=== PATIENT | male | born 1985 | race American Indian/Alaskan Native ===

== ENCOUNTER 2020-03-15 09:29 | Emergency (ER) | payer SELFPAY ==
[2020-03-15 09:34] VITALS: BP 156/112
--- NOTE | 2020-03-15 10:20 | Emergency Department Report ---
Chief Complaint: Dental/Oral Stated Complaint: TOOTH PAIN Time Seen by Provider: 03/15/20 10:12 - HPI History of Present Illness: 34-year-old -Ivorian male presents to the emergency room complaining of tooth ache that started yesterday. Patient states that he had a broken tooth 1 month ago but has not given him any problems. Patient has taken nothing for his pain. Patient has no past medical history no known drug allergies. - Exam Vital Signs: Vital Signs 03/15/20 09:33 Temperature 98.1 F Pulse Rate 75 Respiratory 14 Rate Blood Pressure 156/112 [Right] O2 Sat by Pulse 97 Oximetry Physical Exam: Patient is alert and oriented x3 no acute distress Mouth: Oral mucosa is moist tooth #17 is broken no gingiva enlargement no abscess appreciated nonerythematous nonedematous Jaw no swelling MSE screening note: Focused history and physical exam performed. Due to findings the following was ordered: 34-year-old -Ivorian male presents to the emergency room complaining of tooth ache that started yesterday. Patient states that he had a broken tooth 1 month ago but has not given him any problems. Patient has taken nothing for his pain. Patient has no past medical history no known drug allergies. Recommend patient to take cwrn-[id number] Tylenol or ibuprofen and to follow-up with a dentist. ED Disposition for MSE Disposition: MED SCREENING EXAM-LEFT Is pt being admited?: No Does the pt Need Aspirin: No Condition: Stable Instructions: Toothache (ED) Additional Instructions: Recommend patient to take [id number]-tox-[id number] Tylenol or ibuprofen and to follow-up with a dentist. Referrals: PRIMARY CARE, [Primary Care Provider] - 3-5 Days [facility] [Outside] - 3-5 Days [facility] [Outside] - 3-5 Days
== END 2020-03-15 10:23 | disposition left against medical advice (07) ==
LOC: ED 09:29
DX: K08.89 Other specified disorders of teeth and supporting structures (principal)
CPT/HCPCS: 99282

== ENCOUNTER 2020-09-23 16:20 | Emergency (ER) | payer SELFPAY ==
--- NOTE | 2020-09-23 18:52 | Emergency Department Report ---
Chief Complaint: Extremity Injury, Upper Stated Complaint: WRIST Time Seen by Provider: 09/23/20 18:33 - HPI History of Present Illness: The patient was evaluated in the emergency department for symptoms described in the history of present illness. He/she was evaluated in the context of the global COVID-19 pandemic, which necessitated consideration that the patient might be at risk for infection with the virus that causes COVID-19. Institutional protocols and algorithms that pertain to the evaluation of patients at risk for COVID-19 are in a state of rapid change based on information released by regulatory bodies including the CDC and federal and state organizations. These policies and algorithms were followed during the patient's care in the emergency department. Please note that these policies, procedures and recommendations changed on a rapid basis. 35-year-old -[place] male presents to the emergency room complaining of pain to the right wrist. Patient states is been going on for a week last took pain medication 2 days ago. 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 Patient denies falling. - Exam Physical Exam: Alert and oriented x3 no acute distress nontoxic in appearance Right wrist full range of motion mild tenderness no swelling no erythematous. Ambulatory without difficulties. Nonlabored breathing no no accessory muscle use use. MSE screening note: Focused history and physical exam performed. Due to findings the following was ordered: 35-year-old -[place] male presents to the emergency room complaining of pain to the right wrist. Patient states is been going on for a week last took pain medication 2 days ago. 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 Patient denies falling. Discussed with patient he can try using a wrist splint that he can purchase from [employer] [facility] or [employer]. Continue with ibuprofen 600 mg every 6-8 hours as needed. ED Disposition for MSE Disposition: MED SCREENING EXAM-LEFT Is pt being admited?: No Does the pt Need Aspirin: No Condition: Stable Instructions: Wrist Sprain, Adult Additional Instructions: Recommend [id number] wrist splint that she can purchase from [employer] or [facility]. Ibuprofen every 6-8 hours. Increase your water intake. Follow-up with an orthopedic provider if any further concerns. Referrals: KANU ROSE MD [Staff Physician] - 3-5 Days Forms: Work/School Release Form(ED)
[2020-09-23 18:54] VITALS: BP 138/91
== END 2020-09-23 19:00 | disposition left against medical advice (07) ==
LOC: ED 16:20
DX: M25.531 Pain in right wrist (principal); Z53.21 Procedure and treatment not carried out due to patient leaving prior to being seen by health care provider

== ENCOUNTER 2020-12-12 14:43 | Emergency (ER) | payer SELFPAY ==
--- NOTE | 2020-12-12 15:16 | Emergency Department Report ---
ED Chest Pain HPI - General Chief Complaint: Chest Pain Stated Complaint: CHEST PAIN/UMBERTO/LIGHT HEADED PUI?: No Source: patient Mode of arrival: Ambulatory Limitations: No Limitations - History of Present Illness Initial Comments: 35-year-old -[place]oc[place] male with no past medical history presents to the emergency room reporting he is having chest pain with shortness of breath. Patient states this is been going on for couple days intermittently but today it is gotten constant with sharp pain. Patient points to the midsternal of his chest. Patient does report he works in a [employer] area at [employer]. Patient reports he takes no medications has no known drug allergies. Patient denies any headache no fever no chills no nausea no vomiting no diarrhea. Patient reports his pain is a 3 out of 10. -: This morning Onset: during rest Pain Location: substernal Pain Radiation: none Severity scale (0 -10): 3 Quality: sharp Consistency: constant Improves With: other (Drinking water) Worsens With: nothing re: nausea, dyspnea Other Symptoms: denies: fever, acid taste in mouth, leg swelling, palpitations, burping Treatments Prior to Arrival: none - Related Data Previous Rx's Medication Instructions Recorded Last Taken Type cephALEXin [Keflex] 500 mg PO Q6H #28 capsule 01/10/15 Unknown Rx traMADoL [Ultram 50 MG tab] 50 mg PO Q6HR PRN #10 tablet 01/10/15 Unknown Rx Acetaminophen/Codeine 1 tab PO Q6H PRN #20 tab 02/02/15 Unknown Rx [Acetaminophen-Codeine #3 TAB] Ibuprofen [Motrin] 600 mg PO Q8H PRN #40 tablet 02/02/15 Unknown Rx Sulfamethoxazole/Trimethoprim 1 each PO BID #20 tablet 02/02/15 Unknown Rx [Bactrim Ds] Allergies Allergy/AdvReac Type Severity Reaction Status Date / Time No Known Allergies Allergy Unverified 01/10/15 14:41 Heart Score - HEART Score History: Slightly suspicious EKG: Normal Age: < 45 Risk factors: No known risk factors Troponin: < normal limit HEART Score: 0 ED Review of Systems ROS: Stated complaint: CHEST PAIN/UMBERTO/LIGHT HEADED Other details as noted in HPI ED Past Medical Hx - Past Medical History Previous Medical History?: No - Surgical History Past Surgical History?: No - Social History Smoking Status: Never Smoker Substance Use Type: None - Medications Home Medications: Home Medications Medication Instructions Recorded Confirmed Last Taken Type cephALEXin [Keflex] 500 mg PO Q6H #28 capsule 01/10/15 Unknown Rx traMADoL [Ultram 50 MG tab] 50 mg PO Q6HR PRN #10 tablet 01/10/15 Unknown Rx Acetaminophen/Codeine 1 tab PO Q6H PRN #20 tab 02/02/15 Unknown Rx [Acetaminophen-Codeine #3 TAB] Ibuprofen [Motrin] 600 mg PO Q8H PRN #40 tablet 02/02/15 Unknown Rx Sulfamethoxazole/Trimethoprim 1 each PO BID #20 tablet 02/02/15 Unknown Rx [Bactrim Ds] ED Physical Exam - General Limitations: No Limitations General appearance: alert, in no apparent distress - Head Head exam: Present: atraumatic, normocephalic - Eye Eye exam: Present: normal appearance - ENT ENT exam: Present: mucous membranes moist - Neck Neck exam: Present: normal inspection - Respiratory Respiratory exam: Present: normal lung sounds bilaterally. Absent: respiratory distress - Cardiovascular Cardiovascular Exam: Present: regular rate, normal rhythm. Absent: systolic murmur, diastolic murmur, rubs, gallop - GI/Abdominal GI/Abdominal exam: Present: soft, normal bowel sounds - Rectal Rectal exam: Present: deferred - Extremities Exam Extremities exam: Present: normal inspection - Back Exam Back exam: Present: normal inspection - Neurological Exam Neurological exam: Present: alert, oriented X3 - Psychiatric Psychiatric exam: Present: normal affect, normal mood - Skin Skin exam: Present: warm, dry, intact, normal color. Absent: rash ED Course Vital Signs 12/12/20 12/12/20 12/12/20 15:12 17:13 19:20 Temperature 98.7 F Pulse Rate 67 62 56 L Respiratory 20 18 16 Rate Blood Pressure 122/76 Blood Pressure 139/91 121/82 [Right] O2 Sat by Pulse 99 100 99 Oximetry CHARANJIT score - Charanjit Score Age > 65: (0) No Aspirin use within the Past 7 Days: (0) No 3 or more CAD Risk Factors: (0) No 2 or more Angina events in past 24 hrs: (0) No Known CAD with more than 50% Stenosis: (0) No Elevated Cardiac Markers: (0) No ST Deviation Greater than 0.5mm: (0) No CHARANJIT Score: 0 ED Medical Decision Making - Lab Data Result diagrams: 12/12/20 15:23 12/12/20 15:23 - Radiology Data Radiology results: report reviewed Ordering Physician: TENNILLE BEASLEY Date of Service: 12/12/20 Procedure(s): XR chest routine 2V Accession Number(s): [id number] cc: TENNILLE BEASLEY Fluoro Time In Minutes: CHEST 2 VIEWS INDICATION / CLINICAL INFORMATION: chest pain. COMPARISON: None available. FINDINGS: SUPPORT DEVICES: None. HEART / MEDIASTINUM: No significant abnormality. LUNGS / PLEURA: No significant pulmonary or pleural abnormality. No pneumothorax. ADDITIONAL FINDINGS: No significant additional findings. IMPRESSION: No acute cardiopulmonary abnormality. Signer Name: Anayeli Burroughs MD Signed: 12/12/2020 4:25 PM Workstation Name: [id number] Transcribed By: ANA Dictated By: ANAYELI BURROUGHS Electronically Authenticated By: ANAYELI BURROUGHS Signed Date/Time: 12/12/201624 DD/ 24 TD/TT: - Medical Decision Making 35-year-old -[place] male with no past medical history presents to the emergency room reporting he is having chest pain with shortness of breath. Patient states this is been going on for couple days intermittently but today it is gotten constant with sharp pain. Patient points to the midsternal of his chest. Patient does report he works in a [employer] area at [employer]. Patient reports he takes no medications has no known drug allergies. Patient denies any headache no fever no chills no nausea no vomiting no diarrhea. Patient reports his pain is a 3 out of 10. Chest x-ray is negative for any acute cardiopulmonary disease. Labs are negativ e for any elevation of enzymes for concerns of myocardial infarction. EKG within normal limits. Patient's been diagnosed with atypical chest pain. I recommend patient to follow-up with a wildlife biology technician. I have listed 1 below in your discharge. Critical care attestation.: If time is entered above; I have spent that time in minutes in the direct care of this critically ill patient, excluding procedure time. ED Disposition Clinical Impression: Atypical chest pain Disposition: - TO HOME OR SELFCARE Is pt being admited?: No Does the pt Need Aspirin: No Condition: Stable Instructions: Nonspecific Chest Pain, Adult, [id number], Chest Pain (ED) Additional Instructions: Chest x-ray is negative for any acute abnormalities, labs are stable. EKG is stable. I recommend for you to follow-up with a wildlife biology technician I have listed several below for your convenience. Referrals: PRIMARY CAREMD [Primary Care Provider] - 3-5 Days [facility] [Provider Group] - 3-5 Days PARAM BRADSHAW MD [Staff Physician] - 3-5 Days Forms: Work/School Release Form(ED)
[2020-12-12 15:35] LABS: Hematocrit 42.4 % (35.5-45.6); Hemoglobin 14.5 gm/dl (11.8-15.2); Mean Corpuscular HGB Conc 34 % (32-34); Mean Corpuscular Volume 95 fl (84-94); Platelet Count 229 K/mm3 (140-440); Red Blood Count 4.48 M/mm3 (3.65-5.03); Red Cell Distribution Width 12.7 % (13.2-15.2)
[2020-12-12 15:51] LABS: Alanine Aminotransferase 23 units/L (7-56); Albumin 4.5 g/dL (3.9-5); BUN/Creatinine Ratio 16; Blood Urea Nitrogen 14 mg/dL (9-20); Calcium 9.4 mg/dL (8.4-10.2); Hemolysis Index 14
--- NOTE | 2020-12-12 16:30 | XRay Report ---
CHEST 2 VIEWS INDICATION / CLINICAL INFORMATION: chest pain. COMPARISON: None available. FINDINGS: SUPPORT DEVICES: None. HEART / MEDIASTINUM: No significant abnormality. LUNGS / PLEURA: No significant pulmonary or pleural abnormality. No pneumothorax. ADDITIONAL FINDINGS: No significant additional findings. IMPRESSION: No acute cardiopulmonary abnormality. Signer Name: Higinio Burroughs MD Signed: 12/12/2020 4:25 PM Workstation Name: [id number]
[2020-12-12 17:33] LABS: Platelet Estimate Consistent w Auto; RBC Morphology Normal; Total Cells Counted 100
[2020-12-12 19:21] VITALS: BP 121/82
== END 2020-12-12 19:21 | disposition home or self-care (01) ==
LOC: ED 14:43
DX: R07.89 Other chest pain (principal); Z79.899 Other long term (current) drug therapy
CPT/HCPCS: 36415; 71046; 80053; 84484; 85007; 85025; 93005

== ENCOUNTER 2022-02-01 19:27 | Emergency (ER) | payer SELFPAY ==
[2022-02-01 19:38] VITALS: BP 141/85
--- NOTE | 2022-02-01 20:30 | XRay Report ---
RIGHT KNEE 3 VIEW(S) INDICATION / CLINICAL INFORMATION: right knee injury COMPARISON: None available. FINDINGS: BONES / JOINT(S): No acute fracture or subluxation. Incidental bipartite patella superiolaterally, no rmal variant. No significant arthritis. SOFT TISSUES: No significant abnormality. ADDITIONAL FINDINGS: None. Signer Name: Guanaco Batista MD Signed: 02/01/2022 8:26 PM Workstation Name: [id number]
== END 2022-02-02 07:00 | disposition left against medical advice (07) ==
LOC: ED 19:27
DX: M54.50 Low back pain, unspecified (principal); M25.561 Pain in right knee; Z53.21 Procedure and treatment not carried out due to patient leaving prior to being seen by health care provider